=== PATIENT | female | born 1980 | race Caucasian/White ===

== ENCOUNTER 2018-01-24 09:48 | Emergency (ER) | payer OTHER ==
[~2018-01-24] VITALS: Ht 157.5 cm; Wt 69.9 kg
[2018-01-24 09:51] VITALS: Ht 157.5 cm; Wt 69.9 kg
[2018-01-24 10:27] LABS: BASOPHIL % 0.6 % (0-2); PLATELET COUNT 301 x10^3mcL (130-400)
[2018-01-24 11:34] VITALS: BP 146/107
== END 2018-01-24 11:34 | disposition home or self-care (01) ==
LOC: ED 09:48
PROVIDERS: Emergency Medicine
DX: O20.0 Threatened abortion (principal); I10 Essential (primary) hypertension; Z88.8 Allergy status to other drugs, medicaments and biological substances
CPT/HCPCS: 36415; Q0092

== ENCOUNTER 2020-03-14 08:29 | Emergency (ER) | payer OTHER ==
[~2020-03-14] VITALS: Ht 157.5 cm; Wt 75.3 kg
[2020-03-14 10:09] VITALS: Ht 157.5 cm; Wt 75.3 kg
[2020-03-14 12:20] VITALS: BP 138/94
== END 2020-03-14 12:20 | disposition home or self-care (01) ==
LOC: ED 08:29
DX: I10 Essential (primary) hypertension (principal); R51.9 Headache, unspecified; R42 Dizziness and giddiness; Z90.710 Acquired absence of both cervix and uterus
CPT/HCPCS: J1885; J3490